=== PATIENT | male | born 1995 | race Caucasian/White ===

== ENCOUNTER 2017-02-13 21:39 | Emergency (ER) | payer SELFPAY ==
[~2017-02-13] VITALS: Ht 182.9 cm; Wt 86.2 kg
[2017-02-13 21:51] VITALS: BP 136/78
[2017-02-13] MEDS ORDERED: LIDOCAINE 1%, 20ML ONE (22:21)
[2017-02-13] MEDS ORDERED: DIPH,PERTUSS(ACELL),TET VAC/PF 0.5 ML IM-VACC ONE ×2 (22:30→22:58)
[2017-02-13] MEDS ORDERED: LIDOCAINE 1%, 20ML SQ ONE (22:30)
[2017-02-13] MEDS ORDERED: IBUPROFEN 200 MG TABLET ONE (22:58)
== END 2017-02-13 23:52 ==
LOC: ED 23:46
DX: S61.217A Laceration without foreign body of left little finger without damage to nail, initial encounter (principal); W26.0XXA Contact with knife, initial encounter; Y93.89 Activity, other specified; Y92.810 Car as the place of occurrence of the external cause; Y99.8 Other external cause status
CPT/HCPCS: 13120; 90471; 90715; 99285; J3490